=== PATIENT | male | born 2000 | race Two or more races ===

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

== ENCOUNTER 2020-12-19 19:47 | Inpatient (IN) | payer OTHER ==
[~2020-12-19] VITALS: Ht 190.5 cm; Wt 65.0 kg
[2020-12-19] MEDS ORDERED: IBUPROFEN 600 MG TABLET ONE (20:27)
[2020-12-19] MEDS ORDERED: ACETAMINOPHEN 500 MG TABLET ONE (20:28)
[2020-12-19] MEDS ORDERED: SODIUM CHLORIDE 0.9% 1,000ML IVBOLUS ONE ×2 (20:30→22:00)
[2020-12-19] MEDS ORDERED: IBUPROFEN 600 MG TABLET PO ONE (20:30)
[2020-12-19] MEDS ORDERED: ACETAMINOPHEN 500 MG TABLET PO ONE (20:30)
[2020-12-19 21:01] LABS: MEAN CORPUSCULAR HEMOGLOBIN 29.9 pg (27.5-34.5); MEAN CORPUSCULAR HGB CONC 34.3 g/dL (33.2-36.2); MEAN PLATELET VOLUME 11.2 fL (7.4-10.4); PLATELET COUNT 75 x10^3/uL (130-400); RED BLOOD COUNT 4.84 x10^6/uL (4.38-5.82); RED CELL DISTRIBUTION WIDTH 13.5 % (9.4-14.8)
[2020-12-19 21:05] LABS: ALBUMIN 2.5 g/dL (3.4-5.0); ANION GAP 9 mmol/L (5-15); CALCIUM 8.1 mg/dL (8.5-10.1); CHLORIDE 97 mmol/L (98-107); CREATININE 1.05 mg/dL (0.7-1.3)
[2020-12-19 21:24] LABS: BANDS%(MANUAL) 17 % (0-7); LYMPHS% (MANUAL) 8 % (22-44); METAMYELOCYTES# (MANUAL) 0.22 x10^3/uL (0-0); METAMYELOCYTES% (MANUAL) 2 % (0-1); MONOS#(MANUAL) 0.22 x10^3/uL (0.3-2.7); MONOS% (MANUAL) 2 % (2-9); OTHER CELLS # (MANUAL) 0.22 x10^3/uL (0-0); OTHER CELLS % (MANUAL) 2 % (0-0); SEG#(MANUAL) 7.73 x10^3/uL (1.8-8); SEGS% (MANUAL) 69 % (42-75)
[2020-12-19 21:26] LABS: <PLATELET ESTIMATE> DECREASED; <RBC MORPHOLOGY> NORMAL; LARGE PLATELETS 1+; TOXIC GRAN 1+
[2020-12-19] MEDS ORDERED: POTASSIUM CHLORIDE 20 MEQ TAB.ER.PRT PO ONE (21:30)
--- NOTE | 2020-12-19 21:47 | NUR ---
DISCUSSED PLAN OF CARE WITH MD CISNEROS. WILL HANG ADDITIONAL FLUIDS FOR REMAINING TACHYCARDIA, AND BORDERLINE HYPOTENSION. PATIENT UPDATED ON PLAN OF CARE. NO NOTED ADDITIONAL NEEDS AT THIS TIME. REPORT GIVEN TO JERE REN.
--- NOTE | 2020-12-19 21:47 | NUR ---
SPOKE TO MD CISNEROS REGARDING SEPSIS WORKUP. WILL NOT START SEPSIS WORKUP AT THIS TIME. LACTATE 1.6
--- NOTE | 2020-12-19 21:48 | NUR ---
recieved report from roseanne keenan
[2020-12-19] MEDS ORDERED: POTASSIUM CHLORIDE 20 MEQ TAB.ER.PRT ONE (21:52)
[2020-12-19] MEDS ORDERED: CEFTRIAXONE 1,000 MG in DEXTROSE 5% 50 ML IVPB ONE (22:00)
[2020-12-19 22:14] LABS: RAPID INFLUENZA A Negative (Negative); RAPID INFLUENZA B Negative (Negative)
[2020-12-19] MEDS ORDERED: DOCUSATE 100 MG CAPSULE PO PRN (22:30)
[2020-12-19] MEDS ORDERED: DIPHENHYDRAMINE 25 MG CAPSULE PO PRN (22:30)
[2020-12-19] MEDS ORDERED: SODIUM CHLORIDE 0.9% 1,000 ML IV SCH (22:30)
[2020-12-19] MEDS ORDERED: ONDANSETRON ODT 4 MG PO PRN (22:30)
[2020-12-19] MEDS ORDERED: SODIUM CHLORIDE 0.9% 1,000ML IV ONE (22:30)
[2020-12-19] MEDS ORDERED: PHARMACY MAY ADJ FOR RENAL FX MC SCH (22:30)
[2020-12-19] MEDS ORDERED: ONDANSETRON 2MG/ML, 2ML IV PRN (22:30)
--- NOTE | 2020-12-19 22:42 | NUR ---
Patient is resting comfortably in bed. Bed in lowest, rails engaged, call light on lap. NADN. BLOOD CULTURES IN PROGRESS. SPOKE TO SMAlice AND CASSIDY AND WAS TOLD TO GIVBE 1 MORE L OF NS.
[2020-12-19 22:57] LABS: MICROSCOPIC INDICATED
[2020-12-19] MEDS ORDERED: POTASSIUM CHLORIDE 40 MEQ in SODIUM CHLORIDE 0.9% 500 ML IV ONE (23:00)
--- NOTE | 2020-12-19 23:08 | NUR ---
PT STATES HE DOES NOT TAKE ANY MEDICATIONS AT HOME
[2020-12-19] MEDS ORDERED: ENOXAPARIN 40 MG/0.4 ML ONE (23:37)
[2020-12-19] MEDS: ENOXAPARIN 40 MG/0.4 ML SQ SCH (23:43)
--- NOTE | 2020-12-19 23:51 | NUR ---
PT RESTING ON GURNEY RESP EVEN AND UNLABORED NADN,NO NEEDS AT THIS TIME. A&OX4. WCTM
--- NOTE | 2020-12-20 | NUR ---
LATE ENTRY DUE TO PT CARE PT TRANSFERRED INTO HOSPITAL BED. TOLERATED WELL. ATTACHED TO ALL MONITORS, NADN. PT GIVEN BLANBKETS AND PILLOW. POTASSIUM CURRENTLY RUNNING. BRETAHING EVEN AND UNLBAORED. BED IN LOW, RAILS ENGAGED, CALL LIGHT ON LAP. INSTRUCTED MULTIPLE TIMES ON RED NURSE BUTTON. PIO
--- NOTE | 2020-12-20 00:40 | NUR ---
PT RECIEVED 4L OF FLUID INFUSED
--- NOTE | 2020-12-20 01:15 | NUR ---
ASSISTED PT TO BSC. BSC CLEANED AND READY FOR NEXT USE. VSS
--- NOTE | 2020-12-20 03:26 | NUR ---
PT SLEEPING AT THIS TIME. VSS AND WILL CONT TO MONITOR.
--- NOTE | 2020-12-20 05:00 | NUR ---
REPORT FROM JERE THORNTON
[2020-12-20] MEDS ORDERED: ACETAMINOPHEN 325 MG TABLET ONE (05:34)
[2020-12-20] MEDS: ACETAMINOPHEN 325 MG TABLET PO PRN (05:36)
--- NOTE | 2020-12-20 05:53 | NUR ---
pt tachycardic in the 130s. temp checked and was 102. pt medicated for fever with prn tylenol. 4 blankets removed from pt and a sheet provided for comfort. cooling measures in place and pt educated on the reason for them. pt resting comfortably on hospital bed. cold water provided.
--- NOTE | 2020-12-20 06:37 | NUR ---
pt still has a high hr in the 120s and 130s despite tylenol and cooling measures. I attempted to call the hospitalist who is managing this pt however, pt is not listed on the list with assigned hospitalists. I called dr arreola who has the phone today and he said he does not have this pt and will find the dr who does and have that dr call me back to discuss pt care.
--- NOTE | 2020-12-20 06:59 | NUR ---
REPORT TO JERE DAMON
--- NOTE | 2020-12-20 07:25 | NUR ---
REPORT FROM JERE DAMON. ASSUMING PRIMARY CARE OF PT.
[2020-12-20 07:53] LABS: MEAN CORPUSCULAR HEMOGLOBIN 29.8 pg (27.5-34.5); MEAN CORPUSCULAR HGB CONC 34.3 g/dL (33.2-36.2); MEAN PLATELET VOLUME 10.3 fL (7.4-10.4); PLATELET COUNT 57 x10^3/uL (130-400); RED BLOOD COUNT 4.05 x10^6/uL (4.38-5.82); RED CELL DISTRIBUTION WIDTH 13.5 % (9.4-14.8)
[2020-12-20 08:03] LABS: D-DIMER 2.65 ug/mlFEU (0.00-0.52)
[2020-12-20] MEDS ORDERED: CEFTRIAXONE 1,000 MG in DEXTROSE 5% 50 ML IVPB ONE (08:43)
[2020-12-20 08:45] LABS: BAND#(MANUAL) 0.13 x10^3/uL; BANDS%(MANUAL) 1 % (0-7); METAMYELOCYTES# (MANUAL) 0.13 x10^3/uL (0-0); METAMYELOCYTES% (MANUAL) 1 % (0-1); MONOS% (MANUAL) 8 % (2-9); SEG#(MANUAL) 11.25 x10^3/uL (1.8-8); SEGS% (MANUAL) 90 % (42-75)
[2020-12-20 08:46] LABS: <PLATELET ESTIMATE> DECREASED; <RBC MORPHOLOGY> NORMAL; LARGE PLATELETS 1+; PMNS WITH VACUOLES 1+; TOXIC GRAN 1+
--- NOTE | 2020-12-20 08:46 | NUR ---
RN INFORMED MD ABOUT PT'S CURRENT VS AND INFORMED HER ABOUT CRTICAL PROCALCITONIN AT 23.98. MD STATED WILL LOOK AT ORDERS TO PUT IN FLUIDS FOR PT. PT AWAKE, ALERT, AND ORIENTED. BREAKFAST WAS PROVIDED TO PT. PT DENIES ANY PAIN AT THIS TIME. PT RESTING ON HOSPITAL BED. NO OTHER NEEDS.
[2020-12-20 09:44] VITALS: BP 100/55
[2020-12-20] MEDS ORDERED: METOPROLOL SUCCINATE 25 MG TAB.ER.24H PO ONE (10:30)
[2020-12-20] MEDS ORDERED: SODIUM CHLORIDE 0.9% 1,000 ML IV SCH ×2 (10:30→15:30)
--- NOTE | 2020-12-20 10:37 | NUR ---
RN CALLED MD TO INFORM HER THAT FLUID RATE WAS NOT CHANGED. WOULD LIKE NS AT 15ML/HR. RN ALSO STATED GIVE PT METOPROLOL 25MG ONE TIME NOW FOR ST. WANTS RN TO HOLD METOPROLOL FOR SBP LESS THAN 9. SWITCHING TO FLOOR CHARTING.
[2020-12-20 11:21] VITALS: BP 111/51
[2020-12-20] MEDS ORDERED: OMNIPAQUE 350 MG/ML, 100ML BOTTLE ONE (11:40)
[2020-12-20 12:03] LABS: ANION GAP 9 mmol/L (5-15); CALCIUM 7.5 mg/dL (8.5-10.1); CHLORIDE 107 mmol/L (98-107); CREATININE 0.78 mg/dL (0.7-1.3)
[2020-12-20] MEDS: SODIUM CHLORIDE 0.9% 1,000 ML IV SCH ×2 (12:07→18:15)
[2020-12-20] MEDS ORDERED: POTASSIUM PHOSPHATE 44 MEQ in SODIUM CHLORIDE 0.9% 500 ML IV ONE (13:00)
[2020-12-20 14:39] LABS: O2 FLOW ROOM AIR L/min
[2020-12-20 16:19] LABS: ALBUMIN 2.1 g/dL (3.4-5.0)
[2020-12-20 16:22] LABS: BILIRUBIN, DIRECT 0.6 mg/dL (0.1-0.2); BILIRUBIN,INDIRECT 0.5 mg/dL (0.0-2.0); BILIRUBIN,TOTAL 1.1 mg/dL (0.2-1.0); TOTAL PROTEIN 5.2 g/dL (6.4-8.2)
[2020-12-20 20:38] VITALS: BP 114/53
[2020-12-20] MEDS: ENOXAPARIN 40 MG/0.4 ML SQ SCH (22:00)
[2020-12-20] MEDS ORDERED: CEFTRIAXONE 1,000 MG in DEXTROSE 5% 50 ML IVPB SCH (22:30)
[2020-12-20] MEDS ORDERED: CEFTRIAXONE 2 GM in DEXTROSE 5% 50 ML IVPB SCH (22:30)
[2020-12-21 01:26] VITALS: BP 119/47
[2020-12-21] MEDS: SODIUM CHLORIDE 0.9% 1,000 ML IV SCH ×3 (04:28→19:29)
[2020-12-21 04:54] LABS: BASOPHILS % (AUTO) 0 % (0-1); EOSINOPHILS % (AUTO) 0 % (1-7); LYMPHOCYTES % (AUTO) 9 % (22-44); MEAN CORPUSCULAR HEMOGLOBIN 29.8 pg (27.5-34.5); MEAN CORPUSCULAR HGB CONC 34.3 g/dL (33.2-36.2); MEAN PLATELET VOLUME 10.3 fL (7.4-10.4); MONOCYTES % (AUTO) 9 % (2-9); NEUTROPHILS % (AUTO) 82 % (42-75); PLATELET COUNT 73 x10^3/uL (130-400); RED BLOOD COUNT 4.15 x10^6/uL (4.38-5.82); RED CELL DISTRIBUTION WIDTH 13.7 % (9.4-14.8)
[2020-12-21 05:05] LABS: ALANINE AMINOTRANSFERASE 35 U/L (12-78); ALBUMIN 1.9 g/dL (3.4-5.0); ANION GAP 7 mmol/L (5-15); CALCIUM 7.3 mg/dL (8.5-10.1); CHLORIDE 104 mmol/L (98-107); CREATININE 0.54 mg/dL (0.7-1.3)
[2020-12-21 05:08] LABS: ALKALINE PHOSPHATASE 72 U/L (45-117); BILIRUBIN,TOTAL 0.7 mg/dL (0.2-1.0); TOTAL PROTEIN 5.1 g/dL (6.4-8.2)
[2020-12-21 08:34] VITALS: BP 125/79
[2020-12-21] MEDS ORDERED: OMNIPAQUE 350 MG/ML, 100ML BOTTLE ONE (10:40)
[2020-12-21] MEDS: PIPERACILLIN/TAZO 3.375 GM in DEXTROSE 5% 50 ML IVPB SCH ×2 (10:42→17:46)
[2020-12-21 14:00] VITALS: BP 124/80
[2020-12-21 20:00] VITALS: BP 122/74
[2020-12-21] MEDS: ENOXAPARIN 40 MG/0.4 ML SQ SCH (20:30)
[2020-12-21] MEDS: ACETAMINOPHEN 325 MG TABLET PO PRN (22:14)
[2020-12-22] MEDS: PIPERACILLIN/TAZO 3.375 GM in DEXTROSE 5% 50 ML IVPB SCH ×3 (01:31→17:33)
[2020-12-22] MEDS: SODIUM CHLORIDE 0.9% 1,000 ML IV SCH ×4 (01:31→21:40)
[2020-12-22 02:30] VITALS: BP 120/70
[2020-12-22 04:31] LABS: BASOPHILS % (AUTO) 0 % (0-1); EOSINOPHILS % (AUTO) 0 % (1-7); LYMPHOCYTES % (AUTO) 9 % (22-44); MEAN CORPUSCULAR HEMOGLOBIN 29.8 pg (27.5-34.5); MEAN CORPUSCULAR HGB CONC 34.3 g/dL (33.2-36.2); MEAN PLATELET VOLUME 9.6 fL (7.4-10.4); MONOCYTES % (AUTO) 11 % (2-9); NEUTROPHILS % (AUTO) 81 % (42-75); PLATELET COUNT 95 x10^3/uL (130-400); RED CELL DISTRIBUTION WIDTH 13.7 % (9.4-14.8)
[2020-12-22 04:40] LABS: ALANINE AMINOTRANSFERASE 125 U/L (12-78); ALBUMIN 2.2 g/dL (3.4-5.0); ANION GAP 8 mmol/L (5-15); CALCIUM 7.6 mg/dL (8.5-10.1); CHLORIDE 101 mmol/L (98-107); CREATININE 0.51 mg/dL (0.7-1.3)
[2020-12-22 04:42] LABS: ALKALINE PHOSPHATASE 79 U/L (45-117); BILIRUBIN,TOTAL 1.2 mg/dL (0.2-1.0); TOTAL PROTEIN 5.5 g/dL (6.4-8.2)
[2020-12-22 06:44] VITALS: BP 111/65
[2020-12-22] MEDS: ACETAMINOPHEN 325 MG TABLET PO PRN (08:29)
[2020-12-22 13:42] VITALS: BP 122/74
[2020-12-22 16:10] VITALS: BP 141/75
[2020-12-22 19:41] VITALS: BP 126/68
[2020-12-22] MEDS: ENOXAPARIN 40 MG/0.4 ML SQ SCH (21:47)
[2020-12-23] MEDS: SODIUM CHLORIDE 0.9% 1,000 ML IV SCH (00:14)
[2020-12-23 01:54] VITALS: BP 128/69
[2020-12-23] MEDS: PIPERACILLIN/TAZO 3.375 GM in DEXTROSE 5% 50 ML IVPB SCH (02:19)
[2020-12-23 06:11] LABS: BASOPHILS % (AUTO) 0 % (0-1); EOSINOPHILS % (AUTO) 0 % (1-7); LYMPHOCYTES % (AUTO) 12 % (22-44); MEAN CORPUSCULAR HEMOGLOBIN 29.9 pg (27.5-34.5); MEAN CORPUSCULAR HGB CONC 34.4 g/dL (33.2-36.2); MEAN PLATELET VOLUME 9.7 fL (7.4-10.4); MONOCYTES % (AUTO) 14 % (2-9); NEUTROPHILS % (AUTO) 75 % (42-75); PLATELET COUNT 131 x10^3/uL (130-400); RED BLOOD COUNT 4.18 x10^6/uL (4.38-5.82); RED CELL DISTRIBUTION WIDTH 13.6 % (9.4-14.8)
[2020-12-23 06:24] LABS: CHLORIDE 102 mmol/L (98-107)
[2020-12-23 06:42] LABS: ANION GAP 9 mmol/L (5-15); CALCIUM 8.2 mg/dL (8.5-10.1)
[2020-12-23 08:14] VITALS: BP 129/71
[2020-12-23] MEDS ORDERED: POTASSIUM CHLORIDE 20 MEQ TAB.ER.PRT PO ONE (08:30)
[2020-12-23] MEDS: ERTAPENEM 1 GM in SODIUM CHLORIDE 0.9% 50 ML IV SCH (09:49)
[2020-12-23 12:00] LABS: AMPHETAMINE SCREEN, URINE Negative (Negative); BARBITURATE SCREEN, URINE Negative (Negative); BENZODIAZEPINE SCREEN, URINE Negative (Negative); CANNABINOID SCREEN, URINE Negative (Negative); COCAINE SCREEN, URINE Negative (Negative); METHADONE SCREEN, URINE Negative (Negative); OPIATE SCREEN, URINE Negative (Negative)
[2020-12-23] MEDS: LISINOPRIL 5 MG TABLET PO SCH (12:49)
[2020-12-23] MEDS: METOPROLOL SUCCINATE 25 MG TAB.ER.24H PO SCH ×2 (12:50→20:34)
[2020-12-23 13:09] VITALS: BP 130/72
[2020-12-23 19:45] VITALS: BP 121/71
[2020-12-23] MEDS: ENOXAPARIN 40 MG/0.4 ML SQ SCH (20:34)
[2020-12-24 00:37] VITALS: BP 129/66
[2020-12-24 06:30] LABS: CHLORIDE 102 mmol/L (98-107)
[2020-12-24 06:39] LABS: ANION GAP 7 mmol/L (5-15); CALCIUM 8.3 mg/dL (8.5-10.1); CREATININE 0.56 mg/dL (0.7-1.3)
[2020-12-24 06:40] LABS: ALANINE AMINOTRANSFERASE 165 U/L (12-78); ALBUMIN 2.2 g/dL (3.4-5.0); ALKALINE PHOSPHATASE 71 U/L (45-117); BILIRUBIN,TOTAL 0.8 mg/dL (0.2-1.0); TOTAL PROTEIN 6.3 g/dL (6.4-8.2)
[2020-12-24 08:50] VITALS: BP 119/62
[2020-12-24] MEDS: ERTAPENEM 1 GM in SODIUM CHLORIDE 0.9% 50 ML IV SCH (09:07)
[2020-12-24] MEDS: LISINOPRIL 5 MG TABLET PO SCH (09:07)
[2020-12-24] MEDS: METOPROLOL SUCCINATE 25 MG TAB.ER.24H PO SCH ×2 (09:07→20:30)
[2020-12-24 14:04] VITALS: BP 111/61
[2020-12-24 19:44] VITALS: BP 116/56
[2020-12-24] MEDS: ENOXAPARIN 40 MG/0.4 ML SQ SCH (20:31)
[2020-12-25 00:13] VITALS: BP 115/67
[2020-12-25 04:51] LABS: BASOPHILS % (AUTO) 0 % (0-1); EOSINOPHILS % (AUTO) 0 % (1-7); LYMPHOCYTES % (AUTO) 13 % (22-44); MEAN CORPUSCULAR HEMOGLOBIN 30.2 pg (27.5-34.5); MEAN CORPUSCULAR HGB CONC 34.5 g/dL (33.2-36.2); MEAN PLATELET VOLUME 8.4 fL (7.4-10.4); MONOCYTES % (AUTO) 11 % (2-9); NEUTROPHILS % (AUTO) 75 % (42-75); PLATELET COUNT 280 x10^3/uL (130-400); RED BLOOD COUNT 4.19 x10^6/uL (4.38-5.82); RED CELL DISTRIBUTION WIDTH 13.5 % (9.4-14.8)
[2020-12-25 05:00] LABS: CHLORIDE 100 mmol/L (98-107)
[2020-12-25 05:07] LABS: ALANINE AMINOTRANSFERASE 129 U/L (12-78); ALBUMIN 2.1 g/dL (3.4-5.0); ALKALINE PHOSPHATASE 60 U/L (45-117); ANION GAP 5 mmol/L (5-15); BILIRUBIN,TOTAL 0.7 mg/dL (0.2-1.0); CALCIUM 8.4 mg/dL (8.5-10.1); CREATININE 0.43 mg/dL (0.7-1.3); TOTAL PROTEIN 6.6 g/dL (6.4-8.2)
[2020-12-25 08:33] VITALS: BP 116/58
[2020-12-25] MEDS: ERTAPENEM 1 GM in SODIUM CHLORIDE 0.9% 50 ML IV SCH (08:36)
[2020-12-25] MEDS: LISINOPRIL 5 MG TABLET PO SCH (08:36)
[2020-12-25] MEDS: METOPROLOL SUCCINATE 25 MG TAB.ER.24H PO SCH ×2 (08:37→21:01)
[2020-12-25] MEDS ORDERED: OMNIPAQUE 350 MG/ML, 100ML BOTTLE ONE (12:16)
[2020-12-25 13:34] VITALS: BP 104/50
[2020-12-25 19:55] VITALS: BP 104/58
[2020-12-25] MEDS: ENOXAPARIN 40 MG/0.4 ML SQ SCH (21:02)
[2020-12-26 02:10] VITALS: BP 116/65
[2020-12-26 04:47] LABS: BASOPHILS % (AUTO) 1 % (0-1); EOSINOPHILS % (AUTO) 0 % (1-7); LYMPHOCYTES % (AUTO) 13 % (22-44); MEAN CORPUSCULAR HEMOGLOBIN 30.1 pg (27.5-34.5); MEAN CORPUSCULAR HGB CONC 34.6 g/dL (33.2-36.2); MEAN PLATELET VOLUME 8.1 fL (7.4-10.4); MONOCYTES % (AUTO) 10 % (2-9); NEUTROPHILS % (AUTO) 76 % (42-75); PLATELET COUNT 361 x10^3/uL (130-400); RED BLOOD COUNT 4.19 x10^6/uL (4.38-5.82); RED CELL DISTRIBUTION WIDTH 13.6 % (9.4-14.8)
[2020-12-26 04:48] LABS: HCT (SEDRATE) 36.5 % (39.2-51.8)
[2020-12-26 04:58] LABS: ANION GAP 6 mmol/L (5-15); CALCIUM 8.5 mg/dL (8.5-10.1); CHLORIDE 99 mmol/L (98-107); CREATININE 0.55 mg/dL (0.7-1.3)
[2020-12-26 07:49] VITALS: BP 113/65
[2020-12-26] MEDS: ERTAPENEM 1 GM in SODIUM CHLORIDE 0.9% 50 ML IV SCH (08:55)
[2020-12-26] MEDS: LISINOPRIL 5 MG TABLET PO SCH (08:56)
[2020-12-26] MEDS: METOPROLOL SUCCINATE 25 MG TAB.ER.24H PO SCH ×2 (08:56→20:38)
[2020-12-26 13:37] VITALS: BP 109/65
[2020-12-26 19:59] VITALS: BP 106/62
[2020-12-26] MEDS: ENOXAPARIN 40 MG/0.4 ML SQ SCH (20:38)
[2020-12-27 01:45] VITALS: BP 114/65
[2020-12-27 04:58] LABS: HCT (SEDRATE) 36.9 % (39.2-51.8)
[2020-12-27 05:00] LABS: BASOPHILS % (AUTO) 1 % (0-1); EOSINOPHILS % (AUTO) 0 % (1-7); LYMPHOCYTES % (AUTO) 15 % (22-44); MEAN CORPUSCULAR HEMOGLOBIN 29.4 pg (27.5-34.5); MEAN CORPUSCULAR HGB CONC 33.9 g/dL (33.2-36.2); MEAN PLATELET VOLUME 8.1 fL (7.4-10.4); MONOCYTES % (AUTO) 10 % (2-9); NEUTROPHILS % (AUTO) 74 % (42-75); PLATELET COUNT 486 x10^3/uL (130-400); RED BLOOD COUNT 4.33 x10^6/uL (4.38-5.82); RED CELL DISTRIBUTION WIDTH 13.3 % (9.4-14.8)
[2020-12-27 05:08] LABS: ALANINE AMINOTRANSFERASE 82 U/L (12-78); ALBUMIN 2.4 g/dL (3.4-5.0); ANION GAP 3 mmol/L (5-15); CALCIUM 8.8 mg/dL (8.5-10.1); CHLORIDE 98 mmol/L (98-107); CREATININE 0.53 mg/dL (0.7-1.3)
[2020-12-27 05:10] LABS: ALKALINE PHOSPHATASE 59 U/L (45-117); BILIRUBIN,TOTAL 0.6 mg/dL (0.2-1.0); TOTAL PROTEIN 7.5 g/dL (6.4-8.2)
[2020-12-27 08:11] VITALS: BP 111/66
[2020-12-27] MEDS: ERTAPENEM 1 GM in SODIUM CHLORIDE 0.9% 50 ML IV SCH (08:56)
[2020-12-27] MEDS: LISINOPRIL 5 MG TABLET PO SCH (09:00)
[2020-12-27] MEDS: METOPROLOL SUCCINATE 25 MG TAB.ER.24H PO SCH ×2 (09:00→20:35)
[2020-12-27] MEDS ORDERED: PROPOFOL 10 MG/ML, 20ML ONE (13:30)
[2020-12-27 14:26] VITALS: BP 103/64
[2020-12-27 20:32] VITALS: BP 120/61
[2020-12-27] MEDS: ENOXAPARIN 40 MG/0.4 ML SQ SCH (20:36)
[2020-12-28 01:04] VITALS: BP 103/62
[2020-12-28 05:11] LABS: BASOPHILS % (AUTO) 0 % (0-1); EOSINOPHILS % (AUTO) 1 % (1-7); LYMPHOCYTES % (AUTO) 16 % (22-44); MEAN CORPUSCULAR HGB CONC 34.2 g/dL (33.2-36.2); MEAN PLATELET VOLUME 8.7 fL (7.4-10.4); MONOCYTES % (AUTO) 10 % (2-9); NEUTROPHILS % (AUTO) 73 % (42-75); PLATELET COUNT 528 x10^3/uL (130-400); RED CELL DISTRIBUTION WIDTH 13.3 % (9.4-14.8)
[2020-12-28 05:19] LABS: ANION GAP 4 mmol/L (5-15); CALCIUM 8.7 mg/dL (8.5-10.1); CHLORIDE 97 mmol/L (98-107); CREATININE 0.57 mg/dL (0.7-1.3)
[2020-12-28 08:04] VITALS: BP 113/65
[2020-12-28] MEDS: ERTAPENEM 1 GM in SODIUM CHLORIDE 0.9% 50 ML IV SCH (08:42)
[2020-12-28] MEDS: LISINOPRIL 5 MG TABLET PO SCH (08:43)
[2020-12-28] MEDS: METOPROLOL SUCCINATE 25 MG TAB.ER.24H PO SCH (08:43)
[2020-12-28 13:41] VITALS: BP 104/57
[2020-12-28] MEDS ORDERED: LISI5TAB7 PO (17:39)
[2020-12-28] MEDS ORDERED: ERTA1VIA4 IV (17:39)
[2020-12-28] MEDS ORDERED: METO25TA91 PO (17:39)
== END 2020-12-28 18:48 | disposition home or self-care (01) | DRG 871 ==
LOC: ED 21:23 → SUATTDRO 22:11 → EDIP 22:28 → ICU 12-20 11:43 → 4EST 12-22 14:50
PROVIDERS: ADMIT Family Medicine; ATTEND Internal Medicine
PROC: 02HV33Z Insertion of Infusion Device into Superior Vena Cava, Percutaneous Approach (ICD-10-PCS; principal; 2020-12-23)
PROC: B548ZZA Ultrasonography of Superior Vena Cava, Guidance (ICD-10-PCS; 2020-12-23)
PROC: B24BZZ4 Ultrasonography of Heart with Aorta, Transesophageal (ICD-10-PCS; 2020-12-27)
DX: A41.4 Sepsis due to anaerobes (principal); J18.9 Pneumonia, unspecified organism; E87.1 Hypo-osmolality and hyponatremia; I42.9 Cardiomyopathy, unspecified; I50.20 Unspecified systolic (congestive) heart failure; D63.8 Anemia in other chronic diseases classified elsewhere; E83.39 Other disorders of phosphorus metabolism; E87.6 Hypokalemia; E88.09 Other disorders of plasma-protein metabolism, not elsewhere classified; Z20.822 Contact with and (suspected) exposure to COVID-19; I34.1 Nonrheumatic mitral (valve) prolapse; J32.0 Chronic maxillary sinusitis; E86.0 Dehydration; R59.0 Localized enlarged lymph nodes; R74.01 Elevation of levels of liver transaminase levels
CPT/HCPCS: 36415; 36573; 36600; 70100; 70487; 70491; 71045; 71275; 74177; 76700; 80048; 80053; 80076; 80307; 81001; 82040; 82728; 82803; 83605; 83615; 83735; 84100; 84145; 85025; 85379; 85384; 85651; 86140; 86759; 87040; 87070; 87076; 87205; 87400; 87635; 93005; 93306; 93312; 93321; 93325; 96361; 96374; 96375; G0378; J0696; J1335; J1650; J2543; J2704; J3480; Q9967; U0005; C1751; J7030; J7040; Q0163; U0003